=== PATIENT | male | born 1945 | race Caucasian/White ===

== ENCOUNTER 2016-08-14 17:43 | Emergency (ER) | payer OTHER ==
[~2016-08-14] VITALS: Ht 177.8 cm; Wt 113.4 kg
[~2016-08-14 17:43] MED LIST: NORCO 325 MG-51 TAB PO; VOLTAREN75 MG PO
--- NOTE | 2016-08-14 19:03 | ED DYSPNEA/ASTHMA COMPLAINT ---
History of Present Illness General Chief Complaint: General Adult Stated Complaint: DHEERAJ SONG FOR "OXYGEN PROBLEMS" PER PT Source: patient, Call in by Dr. Song Exam Limitations: no limitations Allergies Coded Allergies: NO KNOWN ALLERGIES (10/01/14) Reconcile Medications Aspirin (Ecotrin*) 81 MG TABLET.DR 1 TAB PO DAILY HEART/BLOOD (Reported) Atorvastatin Calcium 40 MG TABLET 1 TAB PO DAILY CHOLESTEROL (Reported) Cholecalciferol (Vitamin D3) (Vitamin D) 1,000 UNIT TABLET 1 TAB PO BID SUPPLEMENT (Reported) Folic Acid 1 MG TABLET 1 TAB PO DAILY SUPPLEMENT (Reported) Lisinopril 10 MG TABLET 1 TAB PO DAILY BP (Reported) Metformin HCl 1,000 MG TABLET 1 TAB PO BID DM (Reported) Metoprolol Succinate 25 MG TAB 1 TAB PO DAILY HEART/BP (Reported) Triage Note: PT TO ED FROM DR. SONG'S OFFICE FOR A R/O PE, PER PT HE WAS RECENTLY DX'ED WITH AFIB AT THE [facility], SAW SOTO TODAY FOR F/U AND HE STATES SOTO IS CONCERNED ABOUT A "CLOT". PT'S 02 IN TRIAGE 95%, HAD A CT OF HIS CHEST TWO WEEKS AGO WHICH WAS NORMAL. PT REPORTING WORSENING SOB ON EXERTION OVER PAST FEW WEEKS WELL, RESOLVES ON REST. Triage Nurses Notes Reviewed? yes HPI: Patient is a 71-year-old male sent in by his third grade teacher to rule out pulmonary embolism. Patient was seen in the office today, reported to his third grade teacher that he was having dyspnea over the past 6 months, increased over the past couple of weeks. Patient went to the [facility] last week had an EKG and was referred to his primary doctor and cardiology. Patient was started on metoprolol last week. Today patient saw his third grade teacher and had a repeat EKG just prior to arrival. Patient was sent to the emergency department for CT scan of his chest to rule out pulmonary embolism. Patient reports dyspnea is 0 at rest, moderate with exertion. Denies lower extremity pain, lower extremity swelling, cough, chest pain, fevers, chills. (SASKIA MÁRQUEZ) Vital Signs & Intake/Output Vital Signs & Intake/Output Vital Signs Date Time Temp Pulse Resp B/P Pulse O2 O2 Flow FiO2 Ox Delivery Rate 08/14 2044 98 Room Air 08/14 2009 99.0 87 18 155/84 94 Room Air 08/142 98.6 91 18 150/94 95 Room Air Past History Travel History Traveled to [place] past 21 day No Medical History Any Pertinent Medical History? see below for history Neurological: NONE EENT: NONE Cardiovascular: AFIB, hypertension, hyperlipidemia Respiratory: SLEEP APNEA Gastrointestinal: NONE Hepatic: NONE Renal: NONE Musculoskeletal: NONE Psychiatric: NONE Endocrine: diabetes Blood Disorders: NONE Cancer(s): NONE MEDIA PRODUCER/Reproductive: NONE Surgical History Surgical History: non-contributory Psychosocial History What is your primary language Spanish Tobacco Use: Never used ETOH Use: occasional use Illicit Drug Use: denies illicit drug use Family History Hx Contributory? No (SASKIA MÁRQUEZ) Review of Systems Review of Systems Constitutional: Denies: chills, fever. EENTM: Reports: no symptoms. Respiratory: Reports: short of breath. Denies: cough. Cardiovascular: Denies: chest pain, peripheral edema, syncope. GI: Denies: abdominal pain, nausea, vomiting. Genitourinary: Reports: no symptoms. Musculoskeletal: Reports: no symptoms. Skin: Reports: no symptoms. Neurological/Psychological: Reports: no symptoms. Hematologic/Endocrine: Reports: no symptoms. Immunologic/Allergic: Reports: no symptoms. (SASKIA MÁRQUEZ) Physical Exam Physical Exam General Appearance: well developed/nourished, alert, awake Head: atraumatic, normal appearance Eyes: Bilateral: normal appearance, PERRL, EOMI. Ears, Nose, Throat: normal pharynx, normal ENT inspection, hearing grossly normal Neck: normal inspection, supple, full range of motion Respiratory: normal breath sounds, chest non-tender, no respiratory distress, lungs clear Cardiovascular: irregularly irregular (rate controlled) Gastrointestinal: soft, non-tender Extremities: normal inspection, normal capillary refill, normal range of motion, no edema (no calf tenderness) Neurologic/Psych: no motor/sensory deficits, awake, alert, oriented x 3, normal gait, normal mood/affect Skin: intact, normal color, warm/dry Lymphatic: no anterior cervical daniela Core Measures ACS in differential dx? Yes ASA ordered for poss ACS? No-ACS ruled out Severe Sepsis Present: No Septic Shock Present: No (SASKIA MÁRQUEZ) Progress Differential Diagnosis: asthma, AMI, CHF, COPD, pulmonary embolism, pneumonia, unstable angina Diagnostic Imaging: Viewed by Me: CT Scan. Discussed w/RAD: CT Scan. Radiology Impression: PATIENT: CHANTAL CASSIDY PRESENT AGE: 71 PATIENT ACCOUNT NO: [id number] : 47 LOCATION: [facility] ORDERING PHYSICIAN: SASKIA VÁZQUEZ SERVICE DATE: 08/14/16 EXAM TYPE: CAT - CTA CHEST-PULMONARY EMBOLISM EXAMINATION: CT ANGIOGRAM OF THE CHEST WITH AND WITHOUT CONTRAST (CT PULMONARY ANGIOGRAM FOR PE) CLINICAL INFORMATION: Dyspnea. Patient is 71 years old. COMPARISON: None TECHNIQUE: Prior to contrast administration, noncontrast localization images were obtained. Subsequently, multidetector volumetric imaging was performed from the thoracic inlet to below the diaphragms following the administration of 95 mL Optiray 350 intravenous contrast. No contrast reaction reported Sagittal, coronal, and MIP oblique sagittal reformatted images were obtained on the CT workstation, uploaded to PACS, and reviewed. Total exam dose-length product 581 mGy-cm FINDINGS: Clinical Trial Assistant view is noncontributory. QUALITY OF STUDY/CONTRAST BOLUS: Excellent. PULMONARY ARTERIES: No central or segmental pulmonary emboli. THORACIC AORTA: No aneurysm or dissection. LUNG: No focal consolidation, nodules or masses. PLEURA: No pleural effusion or pneumothorax. MEDIASTINUM: Normal heart size. No pericardial effusion. No hilar or mediastinal lymphadenopathy. No evidence of septal bowing or right heart strain. CHEST WALL/AXILLA: No axillary or internal mammary lymphadenopathy. OSSEOUS STRUCTURES: No acute or suspicious osseous abnormality. UPPER ABDOMEN: Unremarkable. No reflux of contrast into the hepatic veins to suggest elevated right heart pressures. A 1.7 cm diameter cyst arises from the upper pole of the right kidney. IMPRESSION: No evidence of pulmonary embolism. VTE: Negative. DICTATED BY: WING MURPHY MD DATE/TIME DICTATED:08/14/162031 SUPERVISOR COSTUMING:RAPHAEL DATE/TIME TRANSCRIBED:2031 CONFIDENTIAL, DO NOT COPY WITHOUT APPROPRIATE AUTHORIZATION. < Electronically signed in Other Vendor System> SIGNED BY: WING MURPHY MD 08/14/162047 Initial ED EKG: none (had ekg prior to arrival) (MIRIAN VÁZQUEZ,SASKIA) Plan of Care: Orders Procedure Date/time Status Telemetry/Talent Acquisition Director 08/14 1901 Active TROPONIN LEVEL 08/14 1901 Complete COMPREHENSIVE METABOLIC PANEL 08/14 1901 Complete CBC WITHOUT DIFFERENTIAL 08/14 1901 Complete Laboratory Tests 08/14/161927: Anion Gap 11, Estimated GFR > 60, BUN/Creatinine Ratio 16.3, Glucose 110 H, Calcium 9.3, Total Bilirubin 0.8, AST 32, ALT 44, Alkaline Phosphatase 102, Troponin I 0.02, Total Protein 7.1, Albumin 4.3, Globulin 2.8, Albumin/Globulin Ratio 1.5, CBC w Diff NO MAN DIFF REQ, RBC 4.70, MCV 91.4, MCH 30.2, RDW 13.6, MPV 8.4, Gran % 47.5, Lymphocytes % 27.9, Monocytes % 8.9, Eosinophils % 15.0 H , Basophils % 0.7, Absolute Granulocytes 3.9, Absolute Lymphocytes 2.3, Absolute Monocytes 0.7 H, Absolute Eosinophils 1.2, Absolute Basophils 0.1, PUBS MCHC 33.1 08/14/2016 8:56:35 PM: Discussed with Dr. Grey. Dr. Song called ahead to Dr. Crook: if CTA negative then patient can be discharged to start taking Xarelto that was prescribed to him. Patient has an appointment with the cardiology nurse practitioner next week. Results of labs and CTA discussed with patient. Appears stable for discharge and outpatient follow up. (SASKIA MÁRQUEZ) Departure Departure Time of Disposition: 2051 Disposition: HOME OR SELF CARE Condition: Stable Clinical Impression Primary Impression: Dyspnea Qualifiers: Dyspnea type: dyspnea on exertion Qualified Code: R06.09 - Other forms of dyspnea Referrals: SOTO BIRMINGHAM,MOE FLETCHER MD,JENNY (PCP/Family) Additional Instructions: Start taking the blood thinning medication for your atrial fibrillation as directed by your third grade teacher. Follow-up with your third grade teacher for further evaluation. Return to the emergency department if chest pain, breathing worsening, or worsening of symptoms. Departure Forms: Customer Survey General Discharge Information (SASKIA MÁRQUEZ) PA/FRACTIONATION SUPERVISOR Co-Sign Statement Statement: ED Attending supervision documentation- [X] I saw and evaluated the patient. I have also reviewed all the pertinent lab results and diagnostic results. I agree with the findings and the plan of care as documented in the PA's/FRACTIONATION SUPERVISOR's documentation. [] I have reviewed the ED Record and agree with the PA's/FRACTIONATION SUPERVISOR's documentation. [] Additions or exceptions (if any) to the PAs/FRACTIONATION SUPERVISOR's note and plan are summarized below: [] (DIOGENES BIRMINGHAM,EVA Ramirez) Critical Care Note Critical Care Note Critical Care Time: non-applicable (MIRIAN VÁZQUEZ,SASKIA)
[2016-08-14] MEDS ORDERED: LISINOPRIL10 M1 PO (19:12)
[2016-08-14] MEDS ORDERED: METOPROLOL SUCC25 M1 PO (19:12)
[2016-08-14] MEDS ORDERED: FOLIC ACID1 M1 PO (19:12)
[2016-08-14] MEDS ORDERED: METFORMIN HCL1000 M1 PO (19:12)
[2016-08-14] MEDS ORDERED: ASPIRIN EC81 M1 PO (19:13)
[2016-08-14] MEDS ORDERED: ATORVASTATIN CA40 M1 PO (19:13)
[2016-08-14] MEDS ORDERED: VITAMIN D1000 UNIT PO (19:14)
[2016-08-14 19:44] LABS: ABSOLUTE BASOPHIL COUNT 0.1 /CUMM (0.0-0.2); ABSOLUTE EOSINOPHIL COUNT 1.2 /CUMM (0.0-0.7); ABSOLUTE GRANULOCYTE CT 3.9 /CUMM (1.4-6.5); ABSOLUTE LYMPH COUNT 2.3 /CUMM (1.2-3.4); ABSOLUTE MONOCYTE COUNT 0.7 /CUMM (0.10-0.60); BASOPHIL % 0.7 % (0.0-2.0); GRANULOCYTE % 47.5 % (42.2-75.2); HEMATOCRIT 42.9 % (42-52); MEAN CORPUSCULAR HGB 30.2 PG (27.0-31.0); MEAN CORPUSCULAR HGB CONC 33.1 G/DL (33.0-37.0); MEAN CORPUSCULAR VOLUME 91.4 FL (80.0-94.0); MEAN PLATELET VOLUME 8.4 FL (7.4-10.4); PLATELET COUNT 189 /CUMM (130-400); RBC DISTRIBUTION WIDTH 13.6 % (11.5-14.5); WHITE BLOOD CELL COUNT 8.3 /CUMM (4.8-10.8)
[2016-08-14 20:10] VITALS: BP 155/84
--- NOTE | 2016-08-14 20:48 | CT SCAN REPORT ---
EXAMINATION: CT ANGIOGRAM OF THE CHEST WITH AND WITHOUT CONTRAST (CT PULMONARY ANGIOGRAM FOR PE) CLINICAL INFORMATION: Dyspnea. Patient is 71 years old. COMPARISON: None TECHNIQUE: Prior to contrast administration, noncontrast localization images were obtained. Subsequently, multidetector volumetric imaging was performed from the thoracic inlet to below the diaphragms following the administration of 95 mL Optiray 350 intravenous contrast. No contrast reaction reported Sagittal, coronal, and MIP oblique sagittal reformatted images were obtained on the CT workstation, uploaded to PACS, and reviewed. Total exam dose-length product 581 mGy-cm FINDINGS: Sales Leader view is noncontributory. QUALITY OF STUDY/CONTRAST BOLUS: Excellent. PULMONARY ARTERIES: No central or segmental pulmonary emboli. THORACIC AORTA: No aneurysm or dissection. LUNG: No focal consolidation, nodules or masses. PLEURA: No pleural effusion or pneumothorax. MEDIASTINUM: Normal heart size. No pericardial effusion. No hilar or mediastinal lymphadenopathy. No evidence of septal bowing or right heart strain. CHEST WALL/AXILLA: No axillary or internal mammary lymphadenopathy. OSSEOUS STRUCTURES: No acute or suspicious osseous abnormality. UPPER ABDOMEN: Unremarkable. No reflux of contrast into the hepatic veins to suggest elevated right heart pressures. A 1.7 cm diameter cyst arises from the upper pole of the right kidney. IMPRESSION: No evidence of pulmonary embolism. VTE: Negative.
== END 2016-08-14 21:09 ==
LOC: ERH 17:43
PROVIDERS: Physician Assistant
DX: R06.00 Dyspnea, unspecified (principal); I10 Essential (primary) hypertension; I48.91 Unspecified atrial fibrillation